=== PATIENT | male | born 1955 | race Caucasian/White ===

== ENCOUNTER 2021-06-21 15:24 | Inpatient (IN) | payer OTHER ==
[~2021-06-21] VITALS: Ht 182.9 cm; Wt 71.2 kg
--- NOTE | ~2021-06-21 | EMS ---
[address] [address] EMS Patient Care Report Name: KRISTIAN RUIZ Room #: 361-P ADM IN M.R.#: [id number] Admission: 06/22/21 Attend Phys: Yadira Madera MD Discharge: Date of : 59 Report #: [id number] THIS REPORT FOR: //name// Report Transmitted: 06/24/2021 10:31 EMS Care Summary [facility] [place] Incident [id number] @ 06/21/2021 14:50 Incident Location [address] [place] [address] Patient KRISTIAN COPELAND Male, 65 Years 1955 Patient Address [address] [place] [address] Patient History None Reported, Patient Allergies No known allergies, Patient Medications None Reported, Chief Complaint shaky and not acting his normal. Disposition Transported No Lights/[place] Dispatch Reason Sick Person Transported To [facility] Narrative 65 y/o sick male Upon arrival at 711 the pt was sitting on a chair in the back of the store. [address] [address] EMS Patient Care Report Name: KRISTIAN RUIZ Room #: 361-P ADM IN M.R.#: [id number] Admission: 06/22/21 Attend Phys: Yadira Madera MD Discharge: Date of : 59 Report #: [id number] The pt is awake, conscious A&O x 4 with a GCS of 15. He is shaky and states he hasn't been feeling himself. The pt is negative on the [place] stroke scale. The pt ambulated with assist x 1 to the ambulance, he entered the ambulance from the side door, he sat on the cot in a position of comfort, was secured to the cot, and VS established. The pt ECG is ST and [address] The pt's ECG is hard to read due to his shaking. Pt states he is extremely cold. An accurate SpO2 was hard to obtain due to his cold hands. The pt D-369. The pt is extremely hard of hearing and communication was difficult. The pt states he's not a diabetic. The pt was covered with his coat and blanket to try and warm him up. The pt was transported to [place] for further observation and testing. The pt was able to move himself from the cot to the ED bed. The pt denies any pain or accidents. The bystander that called was an employee at [employer] who knew the pt and she felt like he was outta sorts. Initial Vitals @15:08P: 128,SpO2: 77, @15:14P: 58,BP: 175/107,SpO2: 91, @15:04P: 130,SpO2: 74, @15:11P: 132,SpO2: 80, @15:02P: 67,Pain: 0/10,SpO2: 93,PA Suspected: false @15:06P: 126,R: 14,Pain: 0/10,GCS: 15,SpO2: 92, @15:02P: 68,R: 14,BP: 190/89,Pain: 0/10,GCS: 15,Glucose: 369,SpO2: 96,Revised Trauma: 12, Assessments @15:14MENTAL:Event Oriented,Place Oriented,Time Oriented,Person Oriented,SKIN:HEENT:Head/Face: No Abnormalities,Neck/Airway: No Abnormalities,LUNG SOUNDS:General: No Abnormalities,ABDOMEN:General: No Abnormalities,PELVIS//GI:No Abnormalities,EXTREMITIES:Capillary Refill: Right Upper: < 2 Sec,Left Arm: No Abnormalities,Right Arm: No Abnormalities,Left Leg: No Abnormalities,Right Leg: No Abnormalities,PULSE:Radial: 2+ Normal,NEURO:No Abnormalities, Impression Diabetic Hyperglycemia Procedures @14:57 ALS Assessment Response: UnchangedSucceeded @15:06 12-Lead ECG Response: UnchangedSucceeded @15:02 3-Lead ECG Response: UnchangedSucceeded @15:03 Oxygen FlowRate: 4 Device: Nasal Cannula (NC) Response: UnchangedSucceeded Timeline 14:48,Call Received [facility] [address] [place] [address] EMS Patient Care Report Name: RUIZKRISTIAN WEBB Room #: 361-P ADM IN M.R.#: [id number] Admission: 06/22/21 Attend Phys: Yadira Madera MD Discharge: Date of : 59 Report #: [id number] 14:48,Dispatch Notified 14:50,Dispatched 14:51,En Route 14:54,On Scene 14:55,At Patient 14:57,ALS Assessment,Response: UnchangedSucceeded, 15:02,BP: 190/89 M,PULSE: 68,RR: 14 R,SPO2: 96 Ox,ETCO2: ,B,PAIN: 0,GCS: 15, 15:02,3-Lead ECG,Response: UnchangedSucceeded, 15:02,BP: / M,PULSE: 67,RR: R,SPO2: 93 Ox,ETCO2: ,BG: ,PAIN: 0,GCS: , 15:03,Oxygen FlowRate: 4 Device: Nasal Cannula (NC) Response: UnchangedSucceeded, 15:04,BP: / M,PULSE: 130,RR: R,SPO2: 74 Ox,ETCO2: ,BG: ,PAIN: ,GCS: , 15:06,12-Lead ECG,Response: UnchangedSucceeded, 15:06,BP: / M,PULSE: 126,RR: 14 R,SPO2: 92 Ox,ETCO2: ,BG: ,PAIN: 0,GCS: 15, 15:08,BP: / M,PULSE: 128,RR: R,SPO2: 77 Ox,ETCO2: ,BG: ,PAIN: ,GCS: , 15:11,BP: / M,PULSE: 132,RR: R,SPO2: 80 Ox,ETCO2: ,BG: ,PAIN: ,GCS: , 15:13,Depart Scene 15:14,BP: 175/107 M,PULSE: 58,RR: R,SPO2: 91 Ox,ETCO2: ,BG: ,PAIN: ,GCS: , 15:20,At Destination 15:40,Call Closed Disclaimer v1.1 Copyright 2021 [employer] This EMS Care Summary contains data elements from the applicable legal record (which may be displayed differently). It is designed to provide pertinent information for the following purposes: continuity of care, clinical quality, and state data reporting. The complete legal record is available to ED staff and administrators of the receiving hospital in [employer] Patient Tracker. All data is provided "as is."
[2021-06-21 15:27] VITALS: BP 178/110
[2021-06-21 16:15] LABS: BE(vivo) 5.2 mmol/L (-2 to +3); HCO3 31.4 mmol/L (22.0-26.0); PCO2 52.3 mmHg (35.0-45.0); PO2 94.3 mmHg (80.0-100.0); pH 7.396 (7.360-7.450); sO2 97.1 % (92.0-98.0)
[2021-06-21 16:30] LABS: CALCIUM 8.9 mg/dL (8.5-10.1)
[2021-06-21 16:40] LABS: ALBUMIN 2.7 g/dL (3.4-5.0); TOTAL BILIRUBIN 6.5 mg/dL (0.2-1.0)
[2021-06-21 17:12] LABS: HEMATOCRIT 40.9 % (37.0-47.0); HEMOGLOBIN 13.6 gm/dL (12.0-15.0); MCH 35.3 pg (26.0-34.0); MCHC 33.3 g/dL (28.0-37.0); MCV 105.8 fL (80.0-100.0); RBC 3.87 mil/uL (4.20-5.00); RDW 14.7 % (10.5-14.5); WBC 26.8 thou/uL (4.0-11.0)
[2021-06-21 17:51] LABS: ATYPICAL LYMPHS 1 %; ATYPICAL MONONUCLEARS 4 %; METAMYELOCYTES 1 %; NUCLEATED RBCS 1 /100WBC
[2021-06-21 18:00] LABS: PLATELET COUNT 491 thou/uL (150-400)
[2021-06-21 18:57] LABS: BE(vivo) 5.5 mmol/L (-2 to +3); HCO3 31.9 mmol/L (22.0-26.0); PCO2 54.7 mmHg (35.0-45.0); PO2 79.3 mmHg (80.0-100.0); pH 7.383 (7.360-7.450); sO2 95.3 % (92.0-98.0)
[2021-06-21 23:45] VITALS: BP 137/90
[2021-06-22 04:18] VITALS: BP 139/97
--- NOTE | 2021-06-22 06:45 | NUR ---
PT ARRIVED ON THE UNIT VIA WHEELCHAIR AND O2. CIWA FOR LAST 6 HOURS IS A 6. ADMISSION COMPLETED, PT IS ALERT BUT SOME CONFUSION. VERY KAKE AND HARD TO UNDERSTAND. PT STATES HE DOES NOT TAKE ANY MEDICATIONS. CLIP BOARD AND PAPER TO COMMUNICATE IS THE BEST WAY. 02 IS AT 4l. PT FALL WRIST HE CAN BARELY STAND UP DUE TO WEAKNESS.
[2021-06-22 07:08] LABS: GLYCOHEMOGLOBIN (HGB A1C) 6.6 % (4.8-5.6)
[2021-06-22 07:10] LABS: URINE BILIRUBIN 2+ (Negative); URINE BLOOD TRACE (Negative); URINE CLARITY CLEAR; URINE GLUCOSE-RANDOM* 3+ (Negative); URINE KETONES 1+ (Negative); URINE LEUKOCYTES-REFLEX NEGATIVE (Negative); URINE NITRITE-REFLEX NEGATIVE (Negative); URINE PROTEIN (DIPSTICK) TRACE (Negative); URINE SPECIFIC GRAVITY 1.015 (1.005-1.035)
[2021-06-22 07:12] LABS: CALCIUM 8.1 mg/dL (8.5-10.1); CREATININE 0.5 mg/dL (0.7-1.3)
[2021-06-22 07:21] LABS: ICTOTEST (BILI CONFIRMATORY) Positive (Negative); URINE COLOR ORANGE
[2021-06-22 07:35] LABS: POTASSIUM 5.7 mmol/L (3.5-5.1)
[2021-06-22 08:17] LABS: HEMOGLOBIN 11.7 gm/dL (14.0-18.0); MCH 35.2 pg (26.0-34.0); MCV 106.6 fL (80.0-100.0); RBC 3.33 mil/uL (4.50-6.00); RDW 15.5 % (10.5-14.5); WBC 30.6 thou/uL (4.0-11.0)
[2021-06-22 08:24] VITALS: BP 145/99
[2021-06-22 08:28] LABS: HEMATOCRIT 35.5 % (42.0-52.0)
--- NOTE | 2021-06-22 10:30 | EKG ---
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 : 1955 Requested By: Hector George Order Number: [id number] MD: Jaguar Varma Measurements Intervals [place] Rate: 128 P: 80 MN: 132 QRS: 53 QRSD: 81 T: 42 QT: 306 QTc: 447 Interpretive Statements Sinus tachycardia LAE, consider biatrial enlargement RSR' in V1 or V2, probably normal variant Borderline repolarization abnormality No previous ECG available for comparison Electronically Signed On 06-22-2021 10:30:40 PALLIATIVE MEDICINE PHYSICIAN by Jaguar Varma [email or web address] <ELECTRONICALLY SIGNED> By: Jaguar Varma MD, [facility] 06/22/21 1030 1539 [id number] Jaguar Varma MD, FACC /EPI
[2021-06-22 11:31] LABS: HEMOGLOBIN 12.9 gm/dL (14.0-18.0); MCH 35.1 pg (26.0-34.0); MCHC 32.6 g/dL (28.0-37.0); MCV 107.5 fL (80.0-100.0); RBC 3.69 mil/uL (4.50-6.00); RDW 14.8 % (10.5-14.5); WBC 29.9 thou/uL (4.0-11.0)
[2021-06-22 11:49] LABS: HEMATOCRIT 39.7 % (42.0-52.0)
[2021-06-22 11:53] VITALS: BP 133/90
[2021-06-22 13:38] LABS: ABSOLUTE NEUTROPHILS 22.1 thou/uL (1.4-8.2); ANISOCYTOSIS 2+; ATYPICAL LYMPHS 15 %; HYPOCHROMASIA 2+; METAMYELOCYTES 1 %; MYELOCYTES 1 %; POIKILOCYTOSIS 2+; TEARDROPS 2+
[2021-06-22 14:00] LABS: PLATELET COUNT 550 thou/uL (150-400)
[2021-06-22 16:26] VITALS: BP 138/87
[2021-06-22 16:27] VITALS: BP 138/87
--- NOTE | 2021-06-22 18:04 | NUR ---
assumed care of pt at 0700. pt alert and oriented to situation, very hard of hearing, difficult to understand at times. requiring 4-6L NC to maintain spo2>92%. tremulous. diaphoretic at times. CIWA 6-9. calls out appropriately. small appetite. afebrile. ID consulted for abx mgmt. vitals stable. using urinal. unable to provide number to reach out to family. reports living at home alone. ST on telemetry with no events. wcm.
[2021-06-22 19:55] VITALS: BP 140/99
[2021-06-23 03:33] VITALS: BP 138/78
--- NOTE | 2021-06-23 05:48 | NUR ---
Patient making slow progress towards outcome goals. Needs 6L O2/NC to maintain optimal saturation. IVFluids infusing, appetite poor, likes to drink soda. Urine output frank colored. High fall risks, fall precutions in place. CIWA 5.
[2021-06-23 07:31] VITALS: BP 139/82
--- NOTE | 2021-06-23 07:34 | HC ---
[facility] [place] [address] CONSULTATION Name: KRISTIAN RUIZ Room #: 361-P ADM IN M.R.#: [id number] Admission: 06/22/21 Attend Phys: Yadira Madera MD Discharge: Date of : 59 Report #: [id number] THIS REPORT FOR: cc: CARLY - No family physician/PCP CARLY - No family physician/PCP Flo Wheeler MD ~ DATE OF SERVICE: 06/22/2021 INFECTIOUS DISEASE CONSULTATION ATTENDING PHYSICIAN: Dr. Madera. REASON FOR EVALUATION: COVID-19 infection, complicated by pneumonitis, respiratory failure, suspect alcohol withdrawal as well, perhaps early sepsis. HISTORY OF PRESENT ILLNESS: Chart reviewed. The patient examined. This is a 65-year-old gentleman with known history of alcohol dependence, who he states he lives by himself. He is quite anxious. It is difficult to assess how he has been feeling. He notes he had been short of breath, had a cough that is assuming it was productive. He is not aware of fevers, but did note some chills, although he was found outside, result he was brought to the Emergency Room. Evaluation was undertaken. He was found to have a positive COVID test, influenza antigen was negative, did have markedly elevated blood sugar at 362. LFTs were elevated, AST of 134, ALT of 86. His total bilirubin was 6.5. Chest x-ray showed emphysematous type changes, probably some chronic scarring, although there may have been acute infiltrates as well. Lactic acid was elevated at 6.2. ABGs: pH 7.396, pCO2 of 52.3, pO2 of 94.3 on 4 liters. Urinalysis was otherwise unremarkable for inflammation. Blood cultures collected at the time of admission are sterile thus far. He is currently on supplemental oxygen 4 liters per nasal cannula. He notes he is mildly dyspneic. He does have a cough. He has been empirically started on therapy with vancomycin, also given Zosyn. ALLERGIES: None known. CURRENT MEDICATIONS: Include nicotine patch, enoxaparin, insulin sliding scale, vancomycin. PAST MEDICAL HISTORY: Significant for some underlying COPD, suggest emphysematous type, diabetes mellitus type 2, previously diagnosed apparently. SOCIAL HISTORY: Smokes a 03-olvs-miag history of cigarettes, daily, excessive alcohol. No illicit drug use. FAMILY HISTORY: Noncontributory. [facility] [address] [place] [address] CONSULTATION Name: KRISTIAN RUIZ Room #: 361-P [facility] IN M.R.#: [id number] Admission: 06/22/21 Attend Phys: Yadira Madera MD Discharge: Date of : 59 Report #: [id number] REVIEW OF SYSTEMS: As above. PHYSICAL EXAMINATION: GENERAL: He appears in moderate distress. He is chronically ill appearing. He is anxious. He is mildly encephalopathic. He is undernourished. VITAL SIGNS: Temperature 94.9, pulse 112, respirations were 24, blood pressure 139/97. SKIN: Warm, dry. No rashes. HEENT: There is no evident trauma. Extraocular muscles intact. Nasal cannula in place. NECK: Supple. LUNGS: Overall diminished, few scattered coarse breath sounds. HEART: Tachycardic, regular, do not appreciate a murmur. ABDOMEN: Mildly distended, somewhat firm. There are no peritoneal signs. GENITOURINARY AND RECTAL: Deferred. LABORATORY DATA: Blood cultures sterile thus far. Electrolytes: Sodium 133, potassium 5.7, chloride 98, bicarbonate is 31, anion gap of 4, BUN and creatinine 12 and 0.5, glucose of 238. Urinalysis negative for leukocytes. Lactic acid in followup was 1.4. ABGs: pH 7.383, pCO2 of 54.7, pO2 of 79.3 on 4 liters. CBC: White count of 26.8, H&H 13.6 and 40.9, platelets of 491. MCV was elevated at 105.8. Did have some atypical lymphocytes. ASSESSMENT AND PLAN: 1. COVID-19 infection, complicated by pneumonitis and respiratory failure. 2. Suspect new diagnosis of diabetes mellitus. 3. Alcohol abuse with apparent liver injury. 4. Chronic smoker with chronic obstructive pulmonary disease. We will continue empiric therapy, add gram-negative coverage to vancomycin. In addition to that, we will add directed therapy against coronavirus with remdesivir. We will have to follow his creatinine, his liver function tests, in addition to corticosteroids. Once we do additional diagnostic testing, certainly can exclude a communicable disease at this point. He remains quite tenuous. Continue supportive care with oxygen therapy. <ELECTRONICALLY SIGNED> By: Flo Wheeler MD 06/23/21 0734 0725 0826 Flo Wheeler MD /nt
[2021-06-23 10:36] LABS: ALBUMIN 2.1 g/dL (3.4-5.0); CALCIUM 7.7 mg/dL (8.5-10.1); CREATININE 0.4 mg/dL (0.7-1.3); POTASSIUM 3.1 mmol/L (3.5-5.1); TOTAL BILIRUBIN 5.5 mg/dL (0.2-1.0)
[2021-06-23 11:04] LABS: MCH 34.6 pg (26.0-34.0); MCHC 33.2 g/dL (28.0-37.0)
[2021-06-23 11:06] LABS: MCV 104.1 fL (80.0-100.0); RBC 3.84 mil/uL (4.50-6.00); RDW 14.7 % (10.5-14.5); WBC 30.3 thou/uL (4.0-11.0)
[2021-06-23 11:10] VITALS: BP 131/80
[2021-06-23 11:10] LABS: HEMOGLOBIN 13.3 gm/dL (14.0-18.0)
[2021-06-23 15:38] VITALS: BP 134/88
--- NOTE | 2021-06-23 15:42 | NUR ---
INITIAL ASSESSMENT: Received consult. SW reviewed chart and spoke with nursing and attending physician. Pt was admitted from home due to sepsis/COVID/ETOH withdrawal. Pt placed in Enhanced Isolation. Per chart, pt has not received a COVID vaccination. Pt is afebrile and on 6L of O2. Pt is on IV abx, IV steroids and Remdesivir. SW placed call to pt's room. No answer. Per chart, pt is [place]. Pt is alert/orientated. Pt appears to live at home. Pt is normally independent with ADLs. No use of DME. Pt does not have a PCP listed. SW to follow up with pt to discuss discharge plan.
--- NOTE | 2021-06-23 19:01 | NUR ---
RN ASSUMED PT'S CARE AT 0700-1900PM, PT IS A&OX4, PT IS ON O2 6L/MIN/NC, PT'S 02SAT STAY AT 92-94%, BUT PT HAS SOB WITH ACTIVITIES, PT'S VS ARE STABLE AT DAY SHIFT, PT IS CONTINUING IV ABX AND TREAT COVID MEDICATIONS, PT DENIES PAIN AND N/V AT DAY SHIFT.
[2021-06-23 19:06] VITALS: BP 155/61
[2021-06-23 21:28] LABS: CALCIUM 7.8 mg/dL (8.5-10.1); CREATININE 0.6 mg/dL (0.7-1.3)
[2021-06-23 21:33] LABS: POTASSIUM 2.4 mmol/L (3.5-5.1)
--- NOTE | 2021-06-23 22:29 | NUR ---
PT HAD 1 MINUTE RUN VTACH, PT WAS UNRESPONSIVE BUT THEN AWAKENED, INITIALLY CONFUSED THEN RETURNED TO A0X4. ED DR, CHARGE NURSE, PHARMACY, RESPIRATORY PRESENT. ORDERS FOR MEDS AND LABS OBTAINED. BED ALARM ON. PT VERBALIZING FEAR AND ANXIETY ABOUT NOT LEAVING HOSPITAL ALIVE. CARDIOLOGY CONSULTED, NEW ORDER OBTAINED. LUNGS COARSE, O2 NC. INCONTINENT X 1 OF URINE, BM BSC PRIOR TO VTACH RUN. PT VERBALIZED DIFFICULTY SWALLOWING PILLS WITHOUT APPLESAUCE.
[2021-06-24 03:45] VITALS: BP 127/75
[2021-06-24 04:41] LABS: CALCIUM 7.7 mg/dL (8.5-10.1); CREATININE 0.5 mg/dL (0.7-1.3); TOTAL BILIRUBIN 5.5 mg/dL (0.2-1.0); TOTAL PROTEIN 5.8 g/dL (6.4-8.2)
[2021-06-24 04:46] LABS: POTASSIUM 2.5 mmol/L (3.5-5.1)
[2021-06-24 06:06] LABS: HEMATOCRIT 29.8 % (42.0-52.0); MCH 38.6 pg (26.0-34.0); MCHC 35.8 g/dL (28.0-37.0); MCV 107.9 fL (80.0-100.0); RBC 2.76 mil/uL (4.50-6.00); RDW 14.5 % (10.5-14.5); WBC 26.1 thou/uL (4.0-11.0)
[2021-06-24 06:12] LABS: HEMOGLOBIN 10.7 gm/dL (14.0-18.0)
[2021-06-24 08:00] VITALS: BP 135/74
--- NOTE | 2021-06-24 10:35 | 2DMMODE ---
[facility] [place] [address] 2 D/M-MODE ECHOCARDIOGRAM Name: KRISTIAN RUIZ Room #: 361-P ADM IN M.R.#: [id number] Admission: 06/22/21 Attend Phys: Yadira Madera MD Discharge: Date of : 59 Report #: [id number] THIS REPORT FOR: cc: FAM - No family physician/PCP FAM - No family physician/PCP Zach Pereira MD ~ APPROVED REPORT Study performed: 06/24/2021 08:57:00 EXAM: Limited 2D, Doppler, and color-flow Echocardiogram Patient Location: Bedside Room #: [facility] Status: routine BSA: 1.88 HR: 117 bpm BP: 135/74 mmHg Rhythm: Tachycardia Other Information Study Quality: Adequate Technically limited study due to lung disease, sitting up in bed. Indications V-Tach, COVID + Hx: Etoh and tob abuse, COPD. 2D Dimensions IVSd: 8.22 (7-11mm) LVDd: 47.60 mm PWd: 8.42 (7-11mm) LVDs: 37.91 (25-40mm) Aortic Valve AoV Peak Suhail.: 1.69 m/s AO Peak Gr.: 11.41 mmHg LVOT Max P.38 mmHg LVOT Max V: 1.26 m/s Pulmonary Valve PV Peak Suhail.: 1.24 m/s PV Peak Gr.: 6.16 mmHg Tricuspid Valve RAP Estimate: 10.00 mmHg [facility] [address] [place] [address] 2 D/M-MODE ECHOCARDIOGRAM Name: KRISTIAN RUIZ Room #: 361- ADM IN M.R.#: [id number] Admission: 06/22/21 Attend Phys: Yadira Madera MD Discharge: Date of : 59 Report #: [id number] Left Ventricle The left ventricle is normal size. Regional wall motion abnormalities are noted. There is normal left ventricular wall thickness. Left ventricular systolic function is moderately decreased. LVEF is 35%. This study is not technically sufficient to allow evaluation of the LV diastolic function. Right Ventricle The right ventricle is normal size. The right ventricular systolic function is normal. Atria The left atrium size is normal. The right atrium size is normal. Aortic Valve The aortic valve is not well visualized; leaflets appear mildly calcified. No aortic regurgitation is present. There is no aortic valvular stenosis. Mitral Valve The mitral valve is normal in structure. There is no mitral valve regurgitation noted. No evidence of mitral valve stenosis. Tricuspid Valve The tricuspid valve is normal in structure. There is no tricuspid valve regurgitation noted. Unable to assess PA pressure. Pulmonic Valve Pulmonic valve is not well visualized. Great Vessels Aortic root is not well visualized. IVC is normal in size and collapses <50% with inspiration. Pericardium Trace pericardial effusion. <Conclusion> The left ventricle is normal size. Regional wall motion abnormalities are noted. LVEF is 35%. The right ventricle is normal size. The left atrium size is normal. The aortic valve is not well visualized; leaflets appear mildly calcified. [facility] [place] [address] [place] [address] 2 D/M-MODE ECHOCARDIOGRAM Name: SARAKRISTIAN Room #: 361-P ADM IN M.R.#: [id number] Admission: 06/22/21 Attend Phys: Yadira Madera MD Discharge: Date of : 59 Report #: [id number] The mitral valve is normal in structure. Trace mitral regurgitation The tricuspid valve is normal in structure. There is no tricuspid valve regurgitation noted. Unable to assess PA pressure. Pulmonic valve is not well visualized. Aortic root is not well visualized. Trace pericardial effusion. <ELECTRONICALLY SIGNED> By: Zach Pereira MD 06/24/21 1034 1034 103 Zach Pereira MD /INF
[2021-06-24 11:37] VITALS: BP 123/75
[2021-06-24 12:48] LABS: MAGNESIUM 1.9 mg/dL (1.8-2.4)
--- NOTE | 2021-06-24 14:54 | NUR ---
HERBER reviewed chart and spoke with nursing and attending physician. Pt remains in Enhanced Isolation due to COVID. Pt is afebrile and on 6L of O2. Pt is on IV abx, IV steroids and Remdesivir. Pt with run of vtach last night. Ricardo Patten called. Cardiology consulted. Therapy has been ordered. HERBER notified earlier today that pt's insurance has termed. HERBER placed call into pt's room. No answer. Pt is [place]. HERBER asked pt's nurse to ask pt if he has insurance at this time. Will need a copy of his insurance card to verify. HERBER is following to assist as needed with discharge planning.
[2021-06-24 16:10] VITALS: BP 103/65
--- NOTE | 2021-06-24 17:23 | EKG ---
[address] [place] [address] ELECTROCARDIOGRAM REPORT Name: KRISTIAN RUIZ Room #: 361-P ADM IN M.R.#: [id number] Admission: 06/22/21 Attend Phys: Yadira Madera MD Discharge: Date of : 59 Report #: [id number] [facility] Test Date: 2021-06-24 Test Time: 10:00:00 Pat Name: KRISTIAN RUIZ Department: Room: 361 P Gender: M Solvent Plant Treater: YVES : 1955 Requested By: Dennis Mascorro Order Number: [id number] MD: Eder Cavazos Measurements Intervals [place] Rate: 112 P: 82 MI: 132 QRS: 28 QRSD: 83 T: 179 QT: 393 QTc: 537 Interpretive Statements Sinus tachycardia Abnormal R-wave progression, early transition Probable LVH with secondary repol abnrm Prolonged QT interval Compared to ECG 06/21/2021 15:39:50 Prolonged QT interval now present Electronically Signed On 06-24-2021 17:23:24 TOOL LATHE OPERATOR by Eder Cavazos [email or web address] <ELECTRONICALLY SIGNED> By: Eder Cavazos MD, [facility] 06/24/21 1723 1000 1000 Eder Cavazos MD, [facility] /EPI
--- NOTE | 2021-06-24 18:56 | NUR ---
RN ASSUMED PT'S CARE AT 0700AM, PT IS A&OX4, PT IS ON O2 5-6 L/MIN/NC, PT'S O2SAT STAY AT 92-95%, PT'S VS ARE STABLE AT DAY SHIFT, BUT PT STILL HAS SOB WITH EXERTION , PT IS CONTINUING IV ABX AND TREAT CIVID MEDICATIONS, PT DENIES PAIN AND N/V AT DAY SHIFT.
[2021-06-24 19:38] VITALS: BP 122/94
[2021-06-24 22:06] LABS: SYPHILIS AB Non Reactive (Non Reactive)
--- NOTE | 2021-06-24 22:53 | NUR ---
PT ALERT AND ORIENTED X4. VERY [place]. MUTIPLE QUESTIONS. MILDLY ANXIOUS. SLIGHT HAND REMORS NOTED OTHERWISE NO S/S ETOH W/D. WILL CONTINUE TO MONITOR CIWA Q 4. VSS AFEBRILE. BED DOWN. CALL LIGHT IN REACH. BED ALARM IS ON. IV ABX INFUSING. VANC TROUGH 15. WILLL INFUSE ORDERED.
[2021-06-25 03:32] VITALS: BP 151/72
--- NOTE | 2021-06-25 06:07 | NUR ---
PT PROGRESSING SLOWLY TOWARDS D/C GOALS. VSS AFBERILE.[place]. ANSERS APPROPRIATELY IF HE CAN HEAR. LUNGS UNLABORED ON 5LNC. NO C/O PAIN. MILD ANXIETY NOTED. PT HAS BEEN RESTING QUIETLY THROUHGOUT THE NIGHT.
[2021-06-25 06:55] LABS: CALCIUM 7.5 mg/dL (8.5-10.1); CREATININE 0.5 mg/dL (0.7-1.3); POTASSIUM 4.3 mmol/L (3.5-5.1); TOTAL PROTEIN 5.5 g/dL (6.4-8.2)
[2021-06-25 08:08] VITALS: BP 141/88
[2021-06-25 10:48] LABS: HEMOGLOBIN 9.7 gm/dL (14.0-18.0); RDW 15.6 % (10.5-14.5)
[2021-06-25 10:50] LABS: MCH 35.2 pg (26.0-34.0); MCHC 32.7 g/dL (28.0-37.0); MCV 107.6 fL (80.0-100.0); PLATELET COUNT 582 thou/uL (150-400); RBC 2.77 mil/uL (4.50-6.00); WBC 28.4 thou/uL (4.0-11.0)
[2021-06-25 10:52] LABS: HEMATOCRIT 29.8 % (42.0-52.0)
[2021-06-25 11:24] VITALS: BP 116/75
[2021-06-25 12:07] LABS: ABSOLUTE NEUTROPHILS 23.6 thou/uL (1.4-8.2); ATYPICAL LYMPHS 1 %; METAMYELOCYTES 6 %; MYELOCYTES 1 %; NUCLEATED RBCS 4 /100WBC
[2021-06-25 12:08] LABS: ANISOCYTOSIS 2+; POLYCHROMASIA SLIGHT
[2021-06-25 12:09] LABS: LARGE PLATELETS FEW
--- NOTE | 2021-06-25 12:36 | NUR ---
HERBER reviewed chart and spoke with nursing and attending physician. Pt remains in Enhanced Isolation due to COVID. Pt is afebrile and on 5L of O2. Pt is on IV abx and IV steroids. Pt is completing course of Remdesivir. Pt with new dx of DM. HERBER placed call to pt's room. No answer. Pt's nurse spoke with pt yesterday about insurance. Pt states he does have health insurance. HERBER discussed with pt's nurse today who will assist with trying to get an insurance card if available. HERBER updated UR. HERBER is following to assist as needed with discharge planning.
[2021-06-25 14:07] LABS: HEMOGLOBIN 10.7 g/dL (13.0-17.7)
[2021-06-25 15:26] VITALS: BP 125/83
--- NOTE | 2021-06-25 18:14 | NUR ---
PT A/O X 4. PT EXTREMELY [place] AND [place]. PT CIWA SCORE 4 THROUGHOUT SHIFT. ON 4L NC. PT COMPLAINS OF GENERALIZED PAIN 4/10. PT TAKES MEDICATIONS CRUSHED IN APPLESAUCE. NO NEEDS CURRENTLY. WILL CONTINUE TO MONITOR.
[2021-06-25 19:30] VITALS: BP 131/80
[2021-06-26 04:20] VITALS: BP 125/60
[2021-06-26 05:19] LABS: ALBUMIN 2.1 g/dL (3.4-5.0); CALCIUM 7.7 mg/dL (8.5-10.1); CREATININE 0.5 mg/dL (0.7-1.3); TOTAL BILIRUBIN 2.5 mg/dL (0.2-1.0); TOTAL PROTEIN 5.3 g/dL (6.4-8.2)
[2021-06-26 05:49] LABS: POTASSIUM 3.2 mmol/L (3.5-5.1)
--- NOTE | 2021-06-26 06:45 | NUR ---
PROGRESS PT A/O X4 UP WITH SBA. VSS. DENIES ANY S/S OF WITHDRAWAL. IV ANTIBIOTICS ADMINISTERED ORDERED ON 2 LITERS O2 LUNGS COARSE AND DIMINISHED HAS A WET SOUNDING COUGH BUT DENIES BRINGING UP ANY SPUTUM. VOIDING QS CONTINUE POC.
[2021-06-26 07:37] VITALS: BP 103/64
[2021-06-26 08:08] LABS: HAV IgM AB (ANTI-HAV IgM) Negative (Negative); HEPATITIS B SURFACE AG Negative (Negative); HIV ANTIBODY Non Reactive (Non Reactive)
[2021-06-26 11:20] VITALS: BP 104/81
--- NOTE | 2021-06-26 13:22 | NUR ---
HERBER reviewed chart and spoke with nursing and attending physician. Pt remains in Enhanced Isolation due to COVID. Pt is afebrile and on 4L of O2. Pt is on IV meds and Remdesivir. Per nursing, pt might have an insurance card in his wallet. Nursing to obtain and make copy. HERBER placed call to pt's room. No answer. Pt is extremely hard of hearing. [employer] has screened pt and will apply for Medicaid on pt's behalf. HERBER contacted [employer] to see about [facility] visits for DM education. HERBER is following to assist as needed with discharge planning.
[2021-06-26 15:25] VITALS: BP 120/66
--- NOTE | 2021-06-26 17:24 | NUR ---
PT A/O X 4. PT COMPLAINS OF PAIN AT IV SITE. PT HAS TREMORS AND IS ANXIOUS. PT HAS NO INSURANCE AND SIGNED PAPERWORK FOR MEDICAID, SITTING OUTSIDE OF PT ROOM. NO NEEDS CURRENTLY, WILL CONTINUE TO MONITOR.
[2021-06-26 19:02] VITALS: BP 122/72
[2021-06-27 02:18] VITALS: BP 111/56
[2021-06-27 07:22] VITALS: BP 117/72
--- NOTE | 2021-06-27 07:42 | NUR ---
ASSUMED PT CARE AT 1900. PT IS ANXIOUS AND HAS SLIGHT TREMORS IN BOTH HANDS. PT'S CIWA SCORE IS 4 THROUGHOUT SHIFT. CURRENTLY ON 3L O2 NC. O2 SATS > 95%. PT USES URINAL AT BEDSIDE. PT LIKES MEDS CRUSHED WITH APPLESAUCE. PT IS ABLE TO MAKE NEEDS KNOWN. CONTINUE WITH PLAN OF CARE.
[2021-06-27 08:45] LABS: HEPATITIS C VIRUS AB <0.1
[2021-06-27 10:09] LABS: CALCIUM 7.5 mg/dL (8.5-10.1); CREATININE 0.6 mg/dL (0.7-1.3)
[2021-06-27 10:11] LABS: POTASSIUM 2.7 mmol/L (3.5-5.1)
[2021-06-27 11:26] VITALS: BP 145/108
--- NOTE | 2021-06-27 13:24 | NUR ---
HERBER reviewed chart and spoke with nursing and attending physician. Pt remains in Enhanced Isolation due to COVID. Pt is afebrile and on 3L of O2. Pt is on IV abx. Possible weekend discharge. Pt has completed ppwk [place]. HERBER notified [employer]. HERBER notified that pt will need a roller walker for discharge. Recommendation made for pt to have HH services for DM education. HERBER contacted [facility] liaison. Roller walker issued to pt today. Pt will need a rest/exercise oximetry for home O2. SW faxed home O2 referral to [facility]. Notified [facility] liaison of [facility] home O2 referral. Will need testing and script for O2 faxed to [facility] when available. HERBER discussed with [facility] liaison, who states they can provide a few [facility] HH visits. HERBER discussed with attending physician, who will follow for HH orders. HERBER requested discharge meds to be entered today, in order for meds to be filled at [facility]. HERBER faxed face sheet to the outpatient pharmacy. HERBER placed several calls to pt's room. No answer. HERBER asked nursing to call SW from pt's room, as pt is extremely hard of hearing. SW to confirm pt's home address and phone number with [employer]. Plan is for pt to discharge home when medically stable. Discharge orders will need to be faxed to when available. Contact info for HH, [facility] and referral info for [facility] clinics, placed in pt's discharge summary. Should pt need transportation home, [facility] can be contacted. HERBER is following to assist as needed with discharge planning. [facility]-- [facility]-- [facility]--
[2021-06-27] MEDS ORDERED: CEFDINIR300 MG PO (13:25)
[2021-06-27] MEDS ORDERED: COREG6.25 MG PO (13:25)
[2021-06-27] MEDS ORDERED: PACERONE 200 M200 M1 PO (13:25)
[2021-06-27] MEDS ORDERED: DEXAMETHASONE 44 M1 PO (13:26)
[2021-06-27] MEDS ORDERED: ASPIRIN EC325 M1 PO (13:26)
[2021-06-27 13:36] VITALS: BP 145/108
[2021-06-27 15:06] VITALS: BP 102/51
--- NOTE | 2021-06-27 16:28 | NUR ---
PT A/O X 4. PT CIWA 4 THROUGHOUT SHIFT, WITH NOTICABLE ANXIETY AND TREMORS. PT EXTREMELY [place]. PT HAD CRITICAL POTASSIUM CALLED THIS AM AT 2.7, ELECTROLYTE PROTOCOL INITIATEED, LABS REDRAWN AND POTASSIUM WNL. PLAN IS TO DC TO HOME TOMORROW WITH 02. PT GIVEN WALKER TO TAKE HOME. PT ON 2000 ML FLUID RESTRICTION. PT ON 3L NC. NO COMPLAINTS OF PAIN. WILL CONTINUE TO MONITOR.
[2021-06-27 19:30] VITALS: BP 111/60
[2021-06-28] VITALS (8 sets, daily range): BP systolic 90–145; BP diastolic 57–108
--- NOTE | 2021-06-28 04:46 | NUR ---
ASSUMED PT CARE AT 1900. PT IS UP IN BED AND RESTING COMFORTABLY. NO C/O OF PAIN, NAUSEA/VOMITTING. VSS. PT IS ANXIOUS FOR D/C. CURRENTLY ON 2L O2 NC AND O2 SATS - 95%. CIWA SCORE OF 4 THROUGHOUT SHIFT WITH SLIGHT TREMORS AND ANXIETY. PT IS ABLE TO MAKE NEEDS KNOWN AND IS PROGRESSING TOWARDS POC GOALS.
[2021-06-28 05:33] LABS: ALBUMIN 2.1 g/dL (3.4-5.0); CALCIUM 8.5 mg/dL (8.5-10.1); CREATININE 0.6 mg/dL (0.7-1.3); PHOSPHORUS 3.6 mg/dL (2.5-4.9)
[2021-06-28 05:37] LABS: POTASSIUM 5.1 mmol/L (3.5-5.1)
--- NOTE | 2021-06-28 13:29 | NUR ---
PT DISCHARGING TODAY TO HOME PT DOES NOT HAVE HEALTH INSURANCE SO THE HOSPITAL IS GOING TO VOUCH FOR HIS MEDS AT [facility] AT [address] PER BALJINDER HERRERA CASE MGMT MGR. ADAN CRAVEN LEFT CAB VOUCHER FOR PT TO TRANSPORT HOME. DC ORDERS/SUMMARY FAXED TO [facility] FOR A COUPLE THE MEDICAL CENTER VISITS. PT IS NOT NEEDING HOME O2 DID NOT QUALIFY FOR IT.
--- NOTE | 2021-06-28 19:38 | NUR ---
DISCHARGE: PT WAS PICKED UP BY [facility] FROM [facility] AT 1930. THIS NURSE ESCORTED PT DOWN TO THE ER BAY WITH ALL BELONGINGS, PAPERWORK, AND PRESCRIPTIONS.
[2021-06-30 15:07] LABS: EBV DNA log10 PCR 2.909 (())
== END 2021-06-28 19:29 | disposition home health service (06) | DRG 871 ==
LOC: ER 15:24 → EDSEX 06-22 00:43 → 3W 06-22 00:43
PROVIDERS: Emergency Medicine; Nurse Practitioner Adult Health; Nurse Practitioner Family; Specialist; ADMIT Internal Medicine; ATTEND Internal Medicine
PROC: XW033E5 Introduction of Remdesivir Anti-infective into Peripheral Vein, Percutaneous Approach, New Technology Group 5 (ICD-10-PCS; principal; 2021-06-22)
DX: A41.9 Sepsis, unspecified organism (principal); U07.1 COVID-19; J12.82 Pneumonia due to coronavirus disease 2019; J96.21 Acute and chronic respiratory failure with hypoxia; J44.0 Chronic obstructive pulmonary disease with (acute) lower respiratory infection; S36.119A Unspecified injury of liver, initial encounter; E46 Unspecified protein-calorie malnutrition; I42.9 Cardiomyopathy, unspecified; F10.10 Alcohol abuse, uncomplicated; F17.210 Nicotine dependence, cigarettes, uncomplicated; E83.42 Hypomagnesemia; R74.01 Elevation of levels of liver transaminase levels; E11.65 Type 2 diabetes mellitus with hyperglycemia; R13.10 Dysphagia, unspecified; E87.6 Hypokalemia; Z71.6 Tobacco abuse counseling; X58.XXXA Exposure to other specified factors, initial encounter; Y93.89 Activity, other specified; Y92.89 Other specified places as the place of occurrence of the external cause; Y99.8 Other external cause status; Z68.21 Body mass index [BMI] 21.0-21.9, adult
CPT/HCPCS: 10879